=== PATIENT | male | born 1985 | race Caucasian/White ===

== ENCOUNTER 2025-05-18 11:50 | Emergency (ER) | payer MEDICAID, SELFPAY ==
[2025-05-18 11:56] VITALS: BP 138/81; PULSE 80; RESP 16; TEMP 36.2; O2SAT 98; BMI 25.0
--- NOTE | 2025-05-18 12:01 | ED.GENADULT ---
HPI - General Adult General Chief complaint: General Medical Stated complaint: med refill Time Seen by Provider: 05/18/25 12:09 Source: patient and RN notes reviewed Mode of arrival: ambulatory Limitations: no limitations History of Present Illness ED Provider: Monalisa Hector PA-C [facility] narrative: This is a 39-year-old male, with a past medical history of hypertension, who presents emergency department for medication refill. Patient is currently on lisinopril 10 mg daily, states that he is running out tomorrow. He states that he is originally from [place] and is visiting in the area as he is helping out his sister. He states that he will be here until before June. He is asymptomatic, feeling well, no other complaints or concerns at this time. MD complaint: Medication refill Related Data Previous Rx's ?Medication ?Instructions ?Recorded lisinopril 10 mg tablet 10 mg PO DAILY 30 days #30 tabs 05/18/25 Allergies Allergy/AdvReac Type Severity Reaction Status Date / Time No Known Allergies Allergy Verified 05/18/25 11:57 Review of Systems Review of Systems: Constitutional : No Fever, No Chills ENT/Mouth : No sore throat, No Rhinorrhea Eyes: No Eye Pain, No Swelling, No Redness Cardiovascular : No Chest Pain, No SOB Respiratory : No Cough, No Sputum Gastrointestinal : No Nausea, No Vomiting, No Diarrhea, No abdominal Pain Genitourinary : No Dysuria, No Hematuria Musculoskeletal : No joint pain, No Myalgias, No Joint Swelling Skin : No Skin Lesions Neuro : No Weakness, No Numbness, No Headache All other systems reviewed and are negative Yes all other systems are reviewed and are negative Constitutional: Constitutional: Reports as per [facility] Social History Social History Advance Directives: No Advance Directives Information Provided: No Physical Exam ED Exam Exam: General: Awake, alert, and oriented X3. No acute distress. HEENT: Normal inspection CVS: Normal heart rate and rhythm. Pulses normal. Respiratory: No respiratory distress Skin: Warm, dry, no rashes noted to exposed skin. Normal skin color. Normal skin turgor. Extremities: Normal to inspection Neuro: Oriented X 3. No motor deficit. No sensory deficit. Vital Signs: Vital Signs - 24 hr 05/18/25 11:56 05/18/25 12:12 Temperature 97.2 F 97.2 F Pulse Rate 80 80 Respiratory Rate 16 16 Blood Pressure 138/81 138/81 Pulse Oximetry 98 98 Oxygen Delivery Method Room Air Room Air BMI result Body Mass Index 25.0 Medical Decision Making Medical Decision Making MDM Narrative: This is a 39-year-old male, with a past medical history of hypertension, who presents emergency department for medication refill. Patient currently on lisinopril 10 mg daily. States that he is running out tomorrow. He is originally from [place] in his unable to have his primary refill this as he is [place] of state. I called over to pharmacy that he has used in the past, confirming that he is on lisinopril 10 mg daily. He is feeling well, no current complaints. Will send over a 2 month supply of lisinopril as he is going to be here until June. Given strict return precautions, he understands and agrees with plan. Patient stable for discharge. Differential Diagnosis Differential Diagnoses: The differential diagnosis associated with the presentation includes Medication refill, hypertension, medication check, medication noncompliance Discharge Plan Discharge Clinical Impression: Medication refill Patient Disposition: Home, Self-Care Instructions: Medicine Refill (ED) Additional Instructions: You were seen in the emergency department for a medication refill. Please continue taking your medication as prescribed. Please follow-up with your primary care physician. If any new or worsening symptoms occur including but not limited to chest pain or shortness of breath, please seek emergent care. Prescriptions: New lisinopril 10 mg tablet 10 mg PO DAILY 30 Days Qty: 30 1RF Interventions: ED Discharge Assessment Last Done: 05/18/25 12:12 Discharge Date/Time: 05/18/25 12:13 Print Language: Serbian
[2025-05-18 12:12] VITALS: BP 138/81; PULSE 80; RESP 16; TEMP 36.2; O2SAT 98
== END 2025-05-18 12:13 | disposition home or self-care (01) ==
PROVIDERS: Emergency Provider Emergency Medicine
DX: Z76.0 Encounter for issue of repeat prescription (principal)
CPT/HCPCS: 99282